=== PATIENT | male | born 1970 | race Caucasian/White ===

== ENCOUNTER 2024-10-13 15:49 | Outpatient (CLI) | payer BC, SELFPAY ==
--- NOTE | ~2024-10-13 | MR_ITS ---
MRI of the right shoulder Technique: Axial proton-density fat-sat images, coronal proton density fat-sat and T2 fat-sat images, and sagittal T1-weighted and T2 fat-sat images were acquired. Clinical History: Pain Findings: There is mild AC joint degenerative change. Coracoclavicular, coracoacromial, coracoclavicu lar and coracohumeral ligaments are intact. Supraspinatus and infraspinatus tendons are intact, with mild to moderate tendinosis. Questionable ti ny 2 mm low-grade articular surface focal tear at the distal supraspinatus tendon insertion. Subscapu litzy tendon is intact with mild to moderate tendinosis. Tendon of long head of the biceps is intact. There is severe glenohumeral joint degenerative change with marked joint space narrowing, diffuse hig h-grade chondral malacia, and probably inferomedial humeral head osteophyte. There is a probable cyst ic change at the superior glenoid with reactive marrow edema at the inferior glenoid. There is associ ated probable circumferential degenerative labral tearing. Inferior glenohumeral ligament is intact. Small glenohumeral joint effusion present with fluid disten tion of the biceps tendon sheath. No fluid distention of the subacromial/subdeltoid bursa. No muscle atrophy or edema.. Impression: Severe glenohumeral joint degenerative change, as detailed above. Probable circumferential degenerative labral tearing. Questionable 2 mm tiny low-grade articular surface tear at the distal supraspinatus tendon insertion. Mild background rotator cuff tendinosis. Small glenohumeral joint effusion with associated fluid distention of the biceps tendon sheath and durán bscapularis recess. Reviewed, dictated and finalized at [facility]. GENCY CARE TECH Impression: Severe glenohumeral joint degenerative change, as detailed above. Probable circumferential degenerative labral tearing. Questionable 2 mm tiny low-grade articular surface tear at the distal supraspin atus tendon insertion. Mild background rotator cuff tendinosis. Small glenohumeral joint effusion with associated fluid distention of the bicep s tendon sheath and subscapularis recess.
== END 2024-10-13 15:50 | disposition home or self-care (01) ==
LOC: MICIMG 15:50
PROVIDERS: PCP Student in an Organized Health Care Education/Training Program; Visit Provider Student in an Organized Health Care Education/Training Program
DX: M25.411 Effusion, right shoulder (principal); M19.011 Primary osteoarthritis, right shoulder
CPT/HCPCS: 73221